=== PATIENT | female | born 1940 | race Caucasian/White ===

== ENCOUNTER → 2018-08-28 10:22 | Outpatient (CLI) | payer MEDICARE, BC, SELFPAY ==
--- NOTE | 2018-08-28 | DI.MG.S_ITS ---
BILATERAL DIGITAL SCREENING MAMMOGRAM 3D/2D WITH CAD: 08/28/2018 CLINICAL: Routine screening. Personal history of right breast cancer. Comparison is made to exams dated: 08/13/2017 mammogram, 07/25/2016 mammogram, and 09/29/2015 mammogram - [facility]. There are scattered fibroglandular elements in both breasts. Current study was also evaluated with a Computer Aided Detection (CAD) system. There is a stable benign architectural distortion in the right breast at 11 o'clock middle depth. There are surgical clips associated with the architectural distortion. No other significant masses, calcifications, or other findings are seen in either breast. IMPRESSION: There is no mammographic evidence of malignancy. A 1 year screening mammogram is recommended. This exam was interpreted at Station ID: [id number]. NOTE: For mammograms, a report in lay terms will be sent to the patient. Approximately 15% of breast malignancies will not be visualized mammographically. In the management of a palpable breast mass, a negative mammogram must not discourage biopsy of a clinically suspicious lesion. Electronically Signed By: Gabriela ferris/gloria:08/28/2018 12:04:55 copy to: DEO MIKE letter sent: Normal Exam ACR BI-RADS Category 2: Benign Finding(s) 3342F
== END ==
PROVIDERS: Family Provider Family Medicine; PCP Family Medicine; Visit Provider Family Medicine
DX: Z12.31 Encounter for screening mammogram for malignant neoplasm of breast (principal); Z85.3 Personal history of malignant neoplasm of breast
CPT/HCPCS: 77063; 77067

== ENCOUNTER 2018-12-30 11:23 | Inpatient (IN) | payer MEDICARE, BC, SELFPAY ==
[2018-12-19 12:47] VITALS: BMI 27.8
[2018-12-30] VITALS (11 sets, daily range): BP systolic 120–192; BP diastolic 71–99; PULSE 61–84; RESP 12–18; TEMP 36.2–36.7; O2SAT 91–98; BMI 26.9
--- NOTE | 2018-12-30 07:28 | DI.RAD.S_ITS ---
PROCEDURE: XR PELVIS 1-2V INDICATIONS: post op left total hip TECHNIQUE: 1 view of the lower pelvis acquired. COMPARISON: CR, PELVIS 1 OR 2VW, 12/12/2007, 12:04. [facility], CT, CT [facility], 12/14/2015, 10:10. FINDINGS: Bones: Patient is status post left hip arthroplasty, with hardware components in expected positions. The hip joint appears congruent. The visualized bony structures appear intact. Soft tissues: Overlying postoperative changes are noted. No suspicious soft tissue densities. IMPRESSION: Normal postoperative appearance after left total hip arthroplasty. Prior right total hip arthroplasty appears stable over time. Dictated by: Gutierrez Recio M.D. on 12/30/2018 at 17:16 Approved by: Gutierrez Recio M.D. on 12/30/2018 at 17:17
[2018-12-30] MEDS: ACETAMINOPHEN 325 MG TABLET 975 MG PO ×2 (11:50→20:20)
[2018-12-30] MEDS: CELECOXIB 200 MG CAPSULE PO (11:51)
[2018-12-30] MEDS: PREGABALIN 75 MG CAPSULE PO (11:51)
[2018-12-30] MEDS: LACTATED RINGERS 1,000 ML 42 ML IV ×2 (11:59→16:50)
--- NOTE | 2018-12-30 12:51 | PM.PREOP ---
Pre-operative Note Interval Note History & Physical reviewed/Exam performed by Physician: Yes Changes to H&P: No
--- NOTE | 2018-12-30 15:27 | SUR.OPER ---
Lateral on padded OR bed. Gel axillary roll. Arms secured on padded armboard with pillow supporting top arm. Padded hip positioner braces x4 - anterior and posterior chest and pelvis. Additional gel pad used anterior pelvis. Gel pad under bottom leg from knee to foot and secured with tape over sheet.
[2018-12-30] MEDS: CEFAZOLIN 1 GM VIAL IV (15:52)
[2018-12-30] MEDS: MORPHINE 4 MG/ML INJ INJ (16:06)
[2018-12-30] MEDS: ROPIVACAINE 0.5% PF 5 MG/ML 20ML VIAL 10 ML INJ (16:06)
[2018-12-30] MEDS: TRANEXAMIC ACID 1,000 MG VIAL 2000 MG INJ ×2 (16:09→16:50)
[2018-12-30] MEDS: KETOROLAC 30 MG/ML VIAL IV (16:09)
--- NOTE | 2018-12-30 17:04 | PM.OP.1 ---
Operative Date/Time/Diagnoses Date of procedure: 12/30/18 Time of procedure: 17:05 Pre-op diagnosis: Left hip DJD Post-op diagnosis: same Procedure & Clinicians Procedure: Left total hip arthroplasty (CPT code 02314 with cardiovascular physician assistant) Same procedure as scheduled: Yes Indications: Patient is an 78-year-old female with severe left hip DJD. The patient has pain with activities and at rest, limited ambulation and activity tolerance, difficulties with ADLs, and failure of conservative treatment. We have discussed the nature of condition, treatment options, risks and benefits, and patient elects to proceed with total hip arthroplasty and gives informed consent. Surgeon: Emigdio Medley Mold Sander: Izzy Nash Anesthesia Type: General and Spinal Operative Notes Closure Type: primary Specimen(s): none sent Prosthetic devices, grafts, tissues, transplants, or devices: Acetabulum: Angel and Nephew R3 acetabular component size 52 mm Femoral component: Angel and Nephew Anthology stem size 8 with standard offset Femoral head: 36 mm + 0 cobalt chrome Estimated Blood Loss (mL): 250 Blood products transfused: none Procedure in detail: After satisfaction induction of anesthetic, and administration of IV antibiotics, the patient was positioned in the lateral decubitus position with all bony prominences well padded and pelvic position secured using a hip engineering aid positioning device. Left hip and lower extremity prepped and draped in the usual sterile fashion, 1st dose of intravenous tranexamic acid was administered, then a longitudinal incision was created centered over the greater trochanter and carried sharply through the skin and subcutaneous tissues down to the fascia surjit which was divided longitudinally and retracted with a Charnley retractor. External rotators visualize, cut, tagged, and retracted posteriorly, then the capsule was cut in a T-type fashion with the corners tagged and retracted. Hip was dislocated and femoral neck cut made according to preoperative templating. Acetabular retractors then placed, and the acetabular labrum and osteophytes were excised. The acetabulum was then sequentially reamed to 51 mm with an excellent circumferential ream and fit with the trial. The trial component was removed and a permanent size 52 mm Angel and Nephew R3 acetabular component was selected, positioned, and impacted with satisfactory position and fixation achieved. Permanent liner was then inserted with the elevated lip directed posteriorly. Soft tissue then removed off the lateral femoral neck in the lateral neck was entered using a box osteotome. T-handled reamers placed down the canal followed by sequential broaching to 8 with the final broach left in place for trial reduction which demonstrated excellent leg length, range of motion, and stability characteristics with a 36 mm +0 trial ball. The trial and broach were removed, and a permanent size 8 Angel and Nephew Synergy stem was selected and inserted with excellent position and fixation achieved. Another trial reduction yielded the above characteristics so the trial ball was exchanged for a permanent 36 mm +0 cobalt chrome ball. The hip was irrigated and reduced and excellent leg length range of motion and stability characteristics were achieved and maintained. Periarticular tissues were infiltrated with ropivacaine, Toradol, and morphine. The hip was copiously irrigated, and the capsule repaired with #2 Ethibond, and the piriformis was repaired back to the greater trochanter with the same. Fascia surjit closed with interrupted #1 Ethibond sutures, and the subcutaneous tissues were closed in 2 layers of 0 Vicryl and 2 0 Vicryl. Skin was closed with sania and sterile dressings applied. Second dose of tranexamic acid was administered intravenously, and the anesthetic was terminated. Complications: none Condition: stable Disposition: PACU Plan for aftercare: Patient will be admitted to the acute care devlin, and anticipate discharge on postop day 1 or 2 with follow-up in office in 10-14 days. Outpatient physical therapy will be arranged and patient will continue to observe posterior hip precautions. Patient will continue use of postoperative Lovenox for 10 days postop.
--- NOTE | 2018-12-30 17:10 | P.OP_ITS ---
Operative Date/Time/Diagnoses Date of procedure: 12/30/18 Time of procedure: 17:05 Pre-op diagnosis: Left hip DJD Post-op diagnosis: same Procedure & Clinicians Procedure: Left total hip arthroplasty (CPT code 03752 with workforce development assistant) Same procedure as scheduled: Yes Indications: Patient is an 78-year-old female with severe left hip DJD. The p atient has pain with activities and at rest, limited ambulation and activity tolerance, difficulties with ADLs, and failure of conservative treatment. We have discussed the nature of condition, treatment options, risks and benefits, and patient elects to proceed with total hip arthroplasty and gives informed consent. Surgeon: Emigdio Medley Boxing Promoter: Izzy Nash Anesthesia Type: General and Spinal Operative Notes Closure Type: primary Specimen(s): none sent Prosthetic devices, grafts, tissues, transplants, or devices: Acetabulum: Angel and Nephew R3 acetabular component size 52 mm Femoral component: Angel and Nephew Anthology stem size 8 with standard offset Femoral head: 36 mm + 0 cobalt chrome Estimated Blood Loss (mL): 250 Blood products transfused: none Procedure in detail: After satisfaction induction of anesthetic, and administration of IV antibiotics, the patient was positioned in the lateral decubitus position with all bony prominences well padded and pelvic position secured using a hip bundle tier and labeler positioning device. Left hip and lower extremity prepped and draped in the usual sterile fashion, 1st dose of intravenous tranexamic acid was administered, then a longitudinal incision was created centered over the greater trochanter and carried sharply through the skin and subcutaneous tissues down to the fascia surjit which was divided longitudinally and retracted with a Charnley retractor. External rotators visualize, cut, tagged, and retracted posteriorly, then the capsule was cut in a T-type fashion with the corners tagged and retracted. Hip was dislocated and femoral neck cut made according to preoperative templating. Acetabular retractors then placed, and the acetabular labrum and osteophytes were excised. The acetabulum was then sequentially reamed to 51 mm with an excellent circumferential ream and fit with the trial. The trial component was removed and a permanent size 52 mm Angel and Nephew R3 acetabular component was selected, positioned, and impacted with satisfactory position and fixation achieved. Permanent liner was then inserted with the elevated lip directed posteriorly. Soft tissue then removed off the lateral femoral neck in the lateral neck was entered using a box osteotome. T- handled reamers placed down the canal followed by sequential broaching to 8 with the final broach left in place for trial reduction which demonstrated excellent leg length, range of motion, and stability characteristics with a 36 mm +0 trial ball. The trial and broach were removed, and a permanent size 8 Angel and Nephew Synergy stem was selected and inserted with excellent position and fixation achieved. Another trial reduction yielded the above characteristics so the trial ball was exchanged for a permanent 36 mm +0 cobalt chrome ball. The hip was irrigated and reduced and excellent leg length range of motion and stability characteristics were achieved and maintained. Periarticular tissues were infiltrated with ropivacaine, Toradol, and morphine. The hip was copiously irrigated, and the capsule repaired with #2 Ethibond, and the piriformis was repaired back to the greater trochanter with the same. Fascia surjit closed with interrupted #1 Ethibond sutures, and the subcutaneous tissues were closed in 2 layers of 0 Vicryl and 2 0 Vicryl. Skin was closed with sania and sterile dressings applied. Second dose of tranexamic acid was administered intravenously, and the anesthetic was terminated. Complications: none Condition: stable Disposition: PACU Plan for aftercare: Patient will be admitted to the acute care devlin, and anticip ate discharge on postop day 1 or 2 with follow-up in office in 10-14 days. Outpatient physical therapy will be arranged and patient will continue to observe posterior hip precautions. Patient will continue use of postoperative Lovenox for 10 days postop.
[2018-12-30] MEDS: ONDANSETRON 4 MG/2 ML INJ IV (17:21)
[2018-12-30] MEDS: LACTATED RINGERS 1,000 ML 125 ML IV (19:46)
--- NOTE | 2018-12-30 22:43 | PC.NURSE ---
Addendum entered by Dali Cates R.N. 12/30/18 22:48: CMS+ PP+, able to wiggle toes and ankle pump, denies pain. Original Note: 1755- pt arrived to room 205 from PACU via bed. A.O x4, 94%RA, LS clear, denies SOB. Left hip posterior bulky drsg CDI. Denies pain, unable to wiggle toes but able to lift right leg some. Head of bed up, emesis 1755-50mL out, 1800- 25mL out, 1830- 50mL out, and 2230- 50mL out. Using IS to 2200. RFA LR @ 125. Bed alarm on for safety.
[2018-12-30] MEDS: CEFAZOLIN 2 GM/100 ML FROZ.PIGGY IV (23:47)
[2018-12-31 00:02] VITALS: BP 134/81; PULSE 68; RESP 18; TEMP 36.6; O2SAT 93
--- NOTE | 2018-12-31 00:04 | PC.NURSE ---
Addendum entered by Milagro Aviles R.N. 12/31/18 01:40: Had another 200cc emesis around 0030 but none since. Assisted up to BSC with walker and 2 assists; patient moving very well and needed minimal assistance. No dizziness or lightheadedness. Was able to void 400cc. Urine is cloudy ashlee. Addendum entered by Milagro Aviles R.N. 12/31/18 00:16: Just had 200cc brown liquid emesis; medicated with Zofran although denies nausea after vomiting Original Note: Patient is alert and oriented. Breath sounds CTA with RA sat of 94%. HRR. Denies nausea at present but has had several small emesis since return from surgery. Was able to eat jello at shift change without emesis. BT hypoactive; denies flatus. Has not yet voided since return from surgery so will continue to monitor, bladder scan & in/out cath as needed. Able to turn self in bed but prefers to sleep on back. Dressing to left hip is CDI. Denies pain but agreeable to ice pack for comfort. CMS intact except PP weak and feet cool to touch. Wearing bilateral SCD's. Has not yet been out of bed. Fall risk score is moderate; bed alarm is activated.
[2018-12-31] MEDS: ONDANSETRON 4 MG/2 ML INJ IV (00:14)
[2018-12-31 04:00] VITALS: BP 129/78; PULSE 63; RESP 16; TEMP 36.7; O2SAT 95
[2018-12-31] MEDS: LACTATED RINGERS 1,000 ML 125 ML IV (04:06)
[2018-12-31 05:23] LABS: Hematocrit 39.1 % (36-46)
[2018-12-31] MEDS: CEFAZOLIN 2 GM/100 ML FROZ.PIGGY IV (07:39)
[2018-12-31 07:40] VITALS: BP 140/73; PULSE 67; RESP 16; TEMP 36.9; O2SAT 95
[2018-12-31] MEDS: ENOXAPARIN 40 MG/0.4 ML SYRINGE SUBCUT (08:15)
[2018-12-31] MEDS: ACETAMINOPHEN 325 MG TABLET 975 MG PO (08:15)
--- NOTE | 2018-12-31 08:53 | PM.DS.1 ---
History of Present Illness Date Patient Seen: 12/31/18 Time Patient Seen: 08:54 Chief complaint: [id number] LEFT JAYSON Narrative: Hospital day 2, postop day 1 following left posterior total hip arthroplasty by Dr. Medley. Patient remained stable postoperatively. Having minimal pain to the left hip. Using Tylenol only. Patient is a Fierro path patient and anticipates going home today. She does have postoperative pain medication at home. She is scheduled to go to [facility] PT in [place]. Patient did have some nausea vomiting last night but doing well this morning. Discharge Providers Date of admission: 12/30/18 11:23 Discharge Date: 12/31/18 Primary care physician: Inocetne Fang MD Consults: 12/30/18 18:02 Consult to Discharge Planning Routine Comment: Consult to Physical Therapy Evaluate & Treat Comment: Physician Instructions: post op JAYSON protocol Consult to Respiratory Therapy Evaluate & Treat Comment: Physician Instructions: Evaluate and treat Discharge provider: Ralph Ferrari PA-C Summary Discharge Diagnosis: Status post left posterior total hip arthroplasty Hospital Course: Patient brought to hospital on 12/30/2018 for above-noted surgery. She remained stable postoperatively. Progressed with physical therapy. Ready for discharge home on postop day 1. Exam Vital Signs (past 8 hours): - 12/31/18 04:00 Temperature 98.0 F Pulse Rate 63 Respiratory Rate 16 Blood Pressure 129/78 Pulse Oximetry 95 Oxygen Delivery Method Room Air Oxygen Flow Rate 0 Narrative Exam Narrative: Alert, oriented in no acute distress resting in bed. Legs. A bulky dressing to left hip is dry without drainage or inflammation. No calf pain or swelling. Pulses symmetrical. Objective Labs Result Diagrams: 12/31/18 05:05 Labs: Laboratory Results - last 24 hr 12/31/18 05:05 Hgb 13.0 Hct 39.1 Discharge Plan Discharge Plan Patient Disposition: Home Discharge comment: Discharge home after cleared by PT. Apply CovRsite dressing to the left hip incision. Patient is a Fierro path patient and has postoperative prescriptions for oxycodone and Vistaril at home. Discharge Med Rec/Prescriptions Prescriptions: New enoxaparin [Lovenox] 40 mg/0.4 mL Syringe 40 mg subcut DAILY Qty: 9 RF: 0 Continued pravastatin 40 mg Tablet 40 mg PO QPM RF: 0 naproxen sodium [Aleve] 220 mg Capsule 220 mg PO BID PRN (Reason: Pain) RF: 0 calcium carbonate [Calcium 600] 600 mg calcium (1,500 mg) Tablet 600 mg PO DAILY RF: 0 Multi For Her 50 Plus 400-80 mcg Capsule 400 mcg PO DAILY RF: 0 vit D3-folic [id number]-B12 2,000-800-0.32 unit-mcg-mg Tablet 1 tab PO DAILY RF: 0 Follow up/Referrals: Inocente Fang MD [Primary Care Provider] - Provider Discharge Instructions Diet: Diet as Tolerated Activity: Ambulate as tolerated. Use walker as needed. Left posterior total hip arthroplasty protocol x6 weeks postop. Cold/Heat Therapy: Cold pack to left hip as needed. Skin/Wound/Dressing Care Report to your healthcare provider any signs of infection, such as:: chills, fever, night sweats, increased pain, unusual drainage and unusual redness Dressing: Keep CovRsite dressing in place until postop visit. She may shower but do not have the shower go directly on the dressing. Visit Report/Discharge Packet Instructions: DI for Hip Replacement Discharge Data Primary Care Provider: Inocente Fang Attending Provider: Emigdio Medley Admit Date/Time: 12/30/18 11:23 Quality VTE Deep Vein Thrombosis/Pulmonary Embolism Present on Admission: No
--- NOTE | 2018-12-31 08:57 | P.DS_ITS ---
History of Present Illness Date Patient Seen: 12/31/18 Time Patient Seen: 08:54 Chief complaint: [id number] LEFT JAYSON Narrative: Hospital day 2, postop day 1 following left posterior total hip arth roplasty by Dr. Medley. Patient remained stable postoperatively. Having minimal pain to the left hip. Using Tylenol only. Patient is a Fierro path patient and anticipates going home today. She does have postoperative pain medication at home. She is scheduled to go to [facility] PT in [place]. Patient did have some nausea vomiting last night but doing well this morning. Discharge Providers Date of admission: 12/30/18 11:23 Discharge Date: 12/31/18 Primary care physician: Inocente Fang MD Consults: 12/30/18 18:02 Consult to Discharge Planning Routine Comment: Consult to Physical Therapy Evaluate & Treat Comment: Physician Instructions: post op JAYSON protocol Consult to Respiratory Therapy Evaluate & Treat Comment: Physician Instructions: Evaluate and treat Discharge provider: Ralph Ferrari PA-C Summary Discharge Diagnosis: Status post left posterior total hip arthroplasty Hospital Course: Patient brought to hospital on 12/30/2018 for above-noted surgery. She remained stable postoperatively. Progressed with physical therapy. Ready for discharge home on postop day 1. Exam Vital Signs (past 8 hours): - 12/31/18 04:00 Temperature 98.0 F Pulse Rate 63 Respiratory Rate 16 Blood Pressure 129/78 Pulse Oximetry 95 Oxygen Delivery Method Room Air Oxygen Flow Rate 0 Narrative Exam Narrative: Alert, oriented in no acute distress resting in bed. Legs. A bulky dressing to left hip is dry without drainage or inflammation. No calf pain or swelling. Pulses symmetrical. Objective Labs Result Diagrams: 12/31/18 05:05 Labs: Laboratory Results - last 24 hr 12/31/18 05:05 Hgb 13.0 Hct 39.1 Discharge Plan Discharge Plan Patient Disposition: Home Discharge comment: Discharge home after cleared by PT. Apply CovRsite dressing to the left hip incision. Patient is a Fierro path patient and has postoperative prescriptions for oxycodone and Vistaril at home. Discharge Med Rec/Prescriptions Prescriptions: New enoxaparin [Lovenox] 40 mg/0.4 mL Syringe 40 mg subcut DAILY Qty: 9 RF: 0 Continued pravastatin 40 mg Tablet 40 mg PO QPM RF: 0 naproxen sodium [Aleve] 220 mg Capsule 220 mg PO BID PRN (Reason: Pain) RF: 0 calcium carbonate [Calcium 600] 600 mg calcium (1,500 mg) Tablet 600 mg PO DAILY RF: 0 Multi For Her 50 Plus 400-80 mcg Capsule 400 mcg PO DAILY RF: 0 vit D3-folic [id number]-[id number]-B12 2,000-800-0.32 unit-mcg-mg Tablet 1 tab PO DAILY RF: 0 Follow up/Referrals: Inocente Fang MD [Primary Care Provider] - Provider Discharge Instructions Diet: Diet as Tolerated Activity: Ambulate as tolerated. Use walker as needed. Left posterior total hip arthroplasty protocol x6 weeks postop. Cold/Heat Therapy: Cold pack to left hip as needed. Skin/Wound/Dressing Care Report to your healthcare provider any signs of infection, such as:: chills, fever, night sweats, increased pain, unusual drainage and unusual redness Dressing: Keep CovRsite dressing in place until postop visit. She may shower but do not have the shower go directly on the dressing. Visit Report/Discharge Packet Instructions: DI for Hip Replacement Discharge Data Primary Care Provider: Inocente Fang Attending Provider: Emigdio Medley Admit Date/Time: 12/30/18 11:23 Quality VTE Deep Vein Thrombosis/Pulmonary Embolism Present on Admission: No
--- NOTE | 2018-12-31 09:12 | CM.DPC ---
Discharge Planning/Care Management CM Discharge Assessment Start: 12/31/18 09:11 Freq: Status: Active Protocol: Document 12/31/18 09:11 ITV (Rec: 12/31/18 09:12 ITV [id number]) Discharge Planning Assessment Advance Directives? Yes Advance Directives on File No History Provided By Patient Medical Record Prior Living Arrangements House Household Members spouse Is patient alert and oriented? Yes Review Status In Process Pre-Anesthesia Assessment Start: 12/19/18 12:47 Freq: Status: Complete Protocol: Document 12/19/18 12:47 CAB (Rec: 12/19/18 13:17 CAB [id number]) Pre-Anesthesia Assessment Patient Information Reviewed Via Phone Assessment Assessment Completed With Patient Diagnostic Results BMP/CMP CBC EKG Comment Outside labs/EKG scanned to record Primary Care Provider Inocente Fang Seen Specialist in Last 12 Months Yes Specialist Seen Orthopedist Primary Language Persian Height 166.37 cm Weight 77.111 kg Body Mass Index (BMI) 27.8 Hearing Ability Normal Visual Assist Glasses Dentition Type Teeth, Natural Present Teeth, Missing Barriers to Learning None Other Aids No Hx Anesthesia Reactions Yes: PONV Hx Family Anesthesia Reaction No Hx Malignant Hyperthermia No Hx Blood Transfusions No Anesthesia Review Requested Yes: PAC courtesy re: abnormal pre-op EKG Consultative Sales Associate No alcohol intake never Smoking Status Never smoker Substance Use Type does not use Pain Present Pain Reported Musculoskeletal Symptoms Abnormal Gait Difficulty Walking Joint Pain History of Falling (Recent or History of No ) Patient is completely paralyzed or No completely immobile Mental Status Oriented to own ability Is patient on oxygen? No Does patient have ANDERSON/SOB No Hx Sleep Apnea No Currently Taking a Beta Carlos No Can You Climb a Flight of Stairs Without Yes SOB Hx Chest Pain No Hx SOB No Hx Syncope or Dizziness No Anti-Coagulant Therapy No Has a Storekeeper Helper No Cardiac Testing No Hx Pacemaker/ICD No Pacemaker Rep Required? No Cardiac Clearance Received Not Applicable Diet Type At Home Regular dysphagia No Urinary Catheter Present No Hx Urinary Self Catheterization No Diabetes No Patient No Lactating No Hx Drug Resistant Organism No Presence of External or Internal Medical Yes: Right hip prosthesis Devices Have you traveled outside the [facility] in the last 30 days? Marital Status Lives With spouse Prior Living Arrangements House Number of Floors (Floors) One Floor Support System Child/Children Friend(s) Spouse Patient Discharge Plan Description Return Home Comment Pt advised overnight length of stay per surgeon's office Feels Safe in Current Environment Yes Been Physically Hurt or Threatened By a No Person in Current Environment Do you have thoughts of harming yourself None or others? Are you currently considering suicide? No Do you have a plan to hurt yourself or No Plan others? Do You Have Any Spiritual Beliefs That No May Affect Your HC Choices? Do You Have Any Cultural Practices That No May Affect Your HC Choices? Spiritual Referral None Comment Mandaeism Who Can We Speak to About Patient's Care Family, friends Identifying Code for Release of Patient Declines to issue Information Health Care Proxy/Next of Kin Jose J Gtz () Health Care Proxy Emergency Contact Name Jose J Gtz () Emergency Contact Advance Directives? Yes Advance Directives on File No Requested Patient Bring Advanced Yes Directives DOS Power of Tobacco Roller Yes Power of Tobacco Roller Name Jose J Gtz () Power of Tobacco Roller PAC Instructions Do not shave/clip surgical site Durable medical equipment Medications to take/avoid Nasal antibiotic No ETOH/petroleum product on skin DOS NPO Post-op transportation Pre-surgical wash Sturdy shoes/comfortable clothes Do not bring valuables and remove jewelry
--- NOTE | 2018-12-31 09:14 | CM.DANOTE ---
Addendum entered by Lynne Priest LPN 12/31/18 11:30: Went to room to check in with pt as planned. PT note is note yet in but, per staff, PT did work with pt this morning and she has already left for home with her as per her preop plan. Addendum entered by Lynne Priest LPN 12/31/18 09:27: Of note: pt has hx of RTHA. Original Note: Discharge Planning/Care Management DCP: assessment: Case received, EMR reviewed and a d/c to home order noted :when cleared by PT. PT is a 78 year old female who admitted yesterday for a planned LTHA/posterior. Surgeon: Dr. Medley Payer: Medicare and [facility][note 2] PCP: Inocente Fang Pt has not been seen yet by PT. Her pre-op plan is identified as home with her spouse [place]'s supportive assist and OUTPT PT at [facility] PT in [facility]. P: discuss case in Team Rounds this morning and check in with pt for d/c issues and options. CM Discharge Assessment Start: 12/31/18 09:11 Freq: Status: Active Protocol: Document 12/31/18 09:11 ITV (Rec: 12/31/18 09:12 ITV [id number]) Discharge Planning Assessment Advance Directives? Yes Advance Directives on File No History Provided By Patient Medical Record Prior Living Arrangements House Household Members spouse Is patient alert and oriented? Yes Review Status In Process Pre-Anesthesia Assessment Start: 12/19/18 12:47 Freq: Status: Complete Protocol: Document 12/19/18 12:47 CAB (Rec: 12/19/18 13:17 CAB [id number]) Pre-Anesthesia Assessment Patient Information Reviewed Via Phone Assessment Assessment Completed With Patient Diagnostic Results BMP/CMP CBC EKG Comment Outside labs/EKG scanned to record Primary Care Provider Inocente Fang Seen Specialist in Last 12 Months Yes Specialist Seen Orthopedist Primary Language Kinyarwanda Height 166.37 cm Weight 77.111 kg Body Mass Index (BMI) 27.8 Hearing Ability Normal Visual Assist Glasses Dentition Type Teeth, Natural Present Teeth, Missing Barriers to Learning None Other Aids No Hx Anesthesia Reactions Yes: PONV Hx Family Anesthesia Reaction No Hx Malignant Hyperthermia No Hx Blood Transfusions No Anesthesia Review Requested Yes: PAC courtesy re: abnormal pre-op EKG 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 No Does patient have ANDERSON/SOB No Hx Sleep Apnea No Currently Taking a Beta Carlos No Can You Climb a Flight of Stairs Without Yes SOB Hx Chest Pain No Hx SOB No Hx Syncope or Dizziness No Anti-Coagulant Therapy No Has a System Validation Engineer No Cardiac Testing No Hx Pacemaker/ICD No Pacemaker Rep Required? No Cardiac Clearance Received Not Applicable Diet Type At Home Regular dysphagia No Urinary Catheter Present No Hx Urinary Self Catheterization No Diabetes No Patient No Lactating No Hx Drug Resistant Organism No Presence of External or Internal Medical Yes: Right hip prosthesis Devices Have you traveled outside the [facility] in the last 30 days? Marital Status Lives With spouse Prior Living Arrangements House Number of Floors (Floors) One Floor Support System Child/Children Friend(s) Spouse Patient Discharge Plan Description Return Home Comment Pt advised overnight length of stay per surgeon's office Feels Safe in Current Environment Yes Been Physically Hurt or Threatened By a No Person in Current Environment Do you have thoughts of harming yourself None or others? Are you currently considering suicide? No Do you have a plan to hurt yourself or No Plan others? Do You Have Any Spiritual Beliefs That No May Affect Your HC Choices? Do You Have Any Cultural Practices That No May Affect Your HC Choices? Spiritual Referral None Comment Buddhist Who Can We Speak to About Patient's Care Family, friends Identifying Code for Release of Patient Declines to issue Information Health Care Proxy/Next of Kin Jose J Gtz () Health Care Proxy Emergency Contact Name Jose J Gtz () Emergency Contact Advance Directives? Yes Advance Directives on File No Requested Patient Bring Advanced Yes Directives DOS Power of Pattern Hanger Yes Power of Pattern Hanger Name Jose J Gtz () Power of Pattern Hanger PAC Instructions Do not shave/clip surgical site Durable medical equipment Medications to take/avoid Nasal antibiotic No ETOH/petroleum product on skin DOS NPO Post-op transportation Pre-surgical wash Sturdy shoes/comfortable clothes Do not bring valuables and remove jewelry
--- NOTE | 2018-12-31 09:15 | PT.IIE ---
Current Diagnoses Unilateral primary osteoarthritis, left hip (12/30/18) Surgery Performed Operation Date: 12/30/18 13:45 Actual Procedures p Total Hip Arthroplasty-Posterior(Left) - Emigdio Medley MD Surgical History (Last Updated 12/19/18 @ 13:10 by Esther Obrien, RN) History of lumpectomy of right breast (Acute ~2015) History of total right hip arthroplasty (Acute ~2007) Hx of dilation and curettage (Acute) Hx of tonsillectomy (Acute) Status post bilateral cataract extraction (Acute) Medical History (Last Updated 12/19/18 @ 13:10 by Esther Obrien RN) Breast cancer, right (Acute ~2015) H/O: hysterectomy (Acute) HLD (hyperlipidemia) (Acute) Osteoarthritis (Acute) Physical Therapy Inpatient Evaluation/Re-Eval M1 PT/OT-IP Prior Functional Status Start: 12/31/18 12:02 Freq: NEEDED Status: Active Protocol: Document 12/31/18 09:15 AB (Rec: 12/31/18 12:20 AB [id number]) Medical Review Prior Functional Status Medical History Reviewed Yes Communication able to make needs known Mobility and Gait Pt stated that she is independent with all mobilities and ambulation without AD Social History Household Members spouse Living Arrangements House Number of Floors (Floors) One Floor Number of Stairs To Enter/Railing? 2 steps to enter with L rail ascending Home Environment Standard Height Toilet Walk in Shower Built-In Shower Seat Home Equipment Front Wheel Walker Straight Cane Raised Toilet Seat w/Armrests Long Handled Shoe [employer] Merchant Grab Bars In Shower Employment Status Retired M2 PT-IP Current Condition Start: 12/31/18 12:02 Freq: NEEDED Status: Active Protocol: Document 12/31/18 09:15 AB (Rec: 12/31/18 12:20 AB [id number]) Physical Therapy Current Condition Current Condition Evaluation Date 12/31/18 Treatment Diagnosis s/p L JAYSON posterior approach; difficulty in walking Onset Date 12/30/18 Precautions Posterior Hip Precautions No Hip Flexion > 90 degrees No Hip Internal Rotation No Hip Adduction Weight Bearing Status Weight Bearing Status Weight Bear as Tolerated M3 PT-IP Subjective Start: 12/31/18 12:02 Freq: NEEDED Status: Active Protocol: Document 12/31/18 09:15 AB (Rec: 12/31/18 12:20 AB [id number]) Subjective Physical Therapy Visit Type Type Initial Evaluation Visit Start Time 09:15 Visit Stop Time 10:07 Total Visit Minutes 52 Number of HAT TRIMMER Visits 0 Physical Therapy Visit Comments Patient Comments pt agreeable to to PT Therapy Pain Assessment Pain When Pain Assessed At Rest Pain Present Pain Present Denied Pain M4 PT-IP Mobility and Gait Start: 12/31/18 12:02 Freq: NEEDED Status: Active Protocol: Document 12/31/18 09:15 AB (Rec: 12/31/18 12:20 AB [id number]) PT-Bed Mobility Assessment Supine to Sit Supine to Sit Standby Assistance Sit to Supine Sit to Supine Standby Assistance Scooting Scooting to Edge of Bed Standby Assistance PT-Transfer Assessment Sit to and From Stand Sit to and from Stand Standby Assistance Contact Guard Assistance Use of Upper Extremities Equipment Transfer Assistive Device Gait Belt Front Wheeled Walker Orthotic/Prosthetic Devices or Brace: No Transfers Transfer Destination Chair Transfer Technique pt ambulated using FWW Transfer Ability Level of Assist Standby Assistance Comments Mobility Comments completed sit <>stand x 8 reps requiring SBA to CGA and max cues for techniques and safety . Gait Assessment Gait Gait Assistance Required: Standby Assistance Distance (Feet) 50 Able to Maintain Weight Bearing Status Yes During Gait Assistive Devices Assistive Device Gait Belt Front Wheeled Walker Orthotic/Prosthetic Devices or Brace: No Gait Deviations General Gait Pattern Antalgic Decreased Stride Length Decreased Feet Clearance Factors Limiting Gait Function Factors Limiting Gait Function Decreased Activity Tolerance Decreased Strength Limited Range of Motion Poor Balance Stair Climbing Assessment Evaluation Level of Assist On Stairs Contact Guard Assistance Devices Stair Climbing Assistive Devices Left Railing Technique/Endurance Stair Climbing Direction Ascend and Descend Stair Climbing Technique Step to Step Number of Steps Climbed 3 Query Text: Stair Climbing Set # Repetitions (reps) 2 Comments Stair Climbing Comments completed up/down steps using L rail ascending CGA; repeated again but holding on to L rail with B rails CGA and pt is more stable hold ing on with B hands. PT-Balance Assessment Sitting Balance and Reactions Static Sitting Balance Ability Good Dynamic Sitting Balance Ability Good Standing Balance and Reactions Static Standing Balance Ability Fair Dynamic Standing Balance Ability Fair Device Used FWW M5 PT-IP Objective Assessments Start: 12/31/18 12:02 Freq: NEEDED Status: Active Protocol: Document 12/31/18 09:15 AB (Rec: 12/31/18 12:20 AB [id number]) Orientation Orientation/Cognition Level of Alertness Alert Orientation Name Place Situation Safety Awareness Decreased Safety Awareness Strength Lower Extremity Strength Assessment Left Impaired Hip 4-/5 Knee 4-/5 Coordination Assessment Gross Coordination Gross Coordination WNL Sensation Assessment Sensation Gross Sensation WNL Muscle Tone Muscle Tone WNL Yes M6 PT-IP Treatment Start: 12/31/18 12:02 Freq: NEEDED Status: Active Protocol: Document 12/31/18 09:15 AB (Rec: 12/31/18 12:20 AB [id number]) Physical Therapy Treatment Exercises Exercises Heel Slides Education Education Provided Precautions Weight Bearing Status Post-Op Packet Safety M7 PT-IP Assessment and Plan Start: 12/31/18 12:02 Freq: NEEDED Status: Active Protocol: Document 12/31/18 09:15 AB (Rec: 12/31/18 12:20 AB [id number]) PT Summary Assessment and Plan Potential Rehabilitation Potential Good Status of Condition at Evaluation Stable Summary Impairments Pain ROM Strength Balance Coordination Bed Mobility Transfers Gait Activity Tolerance Assessment Summary pt requiring SBA to CGA wtih mobility and plans to go home with her spouse to assist her. pt is already set up for outpt PT. pt may go home when medically stable. Goals Bed Mobility Goal Independent Transfer Goal Independent Front Wheeled Walker Gait Goal Independent Front Wheel Walker Gait Distance 200 Other Goals up/down 2 steps using L rail ascending Days to Meet Goals 3 Frequency of Treatment Frequency Of Treatment Twice a Day Treatment Plan Physical Therapy Treatment Plan Bed Mobility Training Transfer Training Gait Training Therapeutic Exercise Balance Retraining Post Op Education Discharge Planning Hot or Cold Pack Neuromuscular Re-ed Coordination Retraining Manual Therapy Other Recommendations and Next Treatment ambulation, sit <>stand, stair Focus climbing Recommendations To Nursing Amount of Assist Needed 1 Person Assist Discharge Recommendations PT Discharge Recommendations Home with Assistance Outpatient PT
--- NOTE | 2018-12-31 10:35 | PC.NURSE ---
Pt has been cleared by P.T. and family is present to take her home. Removed IV and changed left hip dsg to Coversite. Went over d/c instructions with Pt and Spouse discussed d/c meds, time of last dose, reviewed Lovenox injection procedure, signs and symptoms of infection and when to all MD and stroke education as well as following hip precautions and encouraged fluid intake to prevent constipation or dehydration and no driving while on narcotics. Pt denied further questions and is getting dressed and will call when she is ready to be taken out via w/c by STITCH[employer] AROUND to POV with Spouse and all belongings.
== END 2018-12-31 10:50 | disposition home or self-care (01) | DRG 470 ==
PROVIDERS: Admitting Provider Orthopaedic Surgery; Family Provider Family Medicine; PCP Family Medicine; Visit Provider Orthopaedic Surgery
PROC: 0SRB0JZ Replacement of Left Hip Joint with Synthetic Substitute, Open Approach (ICD-10-PCS; CPT 27130; principal; 2018-12-30 13:45)
DX: M16.12 Unilateral primary osteoarthritis, left hip (principal); Z96.641 Presence of right artificial hip joint; E78.5 Hyperlipidemia, unspecified
CPT/HCPCS: 36415; 72170; 85014; 85018; 97116; 97161; 97530; C1776; J0690; J1650; J1885; J2250; J2270; J2405; J2704; J3010

== ENCOUNTER → 2019-08-29 07:52 | Outpatient (CLI) | payer MEDICARE, BC, SELFPAY ==
[2018-12-30 11:43] VITALS: BMI 26.9
--- NOTE | 2019-08-29 | DI.MG.S_ITS ---
BILATERAL DIGITAL SCREENING MAMMOGRAM 3D/2D WITH CAD POST LUMPECTOMY: 08/29/2019 CLINICAL: Routine screening. Personal history of right breast cancer. Comparison is made to exams dated: 08/28/2018 mammogram, 08/13/2017 mammogram, and 07/25/2016 mammogram - [facility]. There are scattered fibroglandular elements in both breasts. Current study was also evaluated with a Computer Aided Detection (CAD) system. There are benign calcifications in both breasts. There also are benign post operative findings in the right breast. No significant masses, calcifications, or other findings are seen in either breast. There has been no significant interval change. IMPRESSION: There is no mammographic evidence of malignancy. A 1 year screening mammogram is recommended. This exam was interpreted at Station ID: [id number]. NOTE: For mammograms, a report in lay terms will be sent to the patient. Approximately 15% of breast malignancies will not be visualized mammographically. In the management of a palpable breast mass, a negative mammogram must not discourage biopsy of a clinically suspicious lesion. Electronically Signed By: Harrison peterson/gloria:08/29/2019 08:43:32 copy to: DEO MIKE letter sent: Normal Exam ACR BI-RADS Category 2: Benign Finding(s) 3342F
== END ==
PROVIDERS: Family Provider Family Medicine; PCP Family Medicine; Referring Provider Family Medicine; Visit Provider Family Medicine
DX: Z12.31 Encounter for screening mammogram for malignant neoplasm of breast (principal); Z85.3 Personal history of malignant neoplasm of breast
CPT/HCPCS: 77063; 77067

== ENCOUNTER → 2020-08-30 11:20 | Outpatient (CLI) | payer MEDICARE, BC, SELFPAY ==
[2018-12-30 11:43] VITALS: BMI 26.9
--- NOTE | 2020-08-30 | DI.MG.S_ITS ---
BILATERAL DIGITAL SCREENING MAMMOGRAM 3D/2D WITH CAD POST LUMPECTOMY: 08/30/2020 CLINICAL: Routine screening. Breast cancer. Comparison is made to exams dated: 08/29/2019 mammogram, 08/28/2018 mammogram, and 08/13/2017 mammogram - [facility]. There are scattered fibroglandular elements in both breasts. Current study was also evaluated with a Computer Aided Detection (CAD) system. There are benign calcifications in both breasts. There also are benign post operative findings in the right breast. No significant masses, calcifications, or other findings are seen in either breast. There has been no significant interval change. IMPRESSION: BENIGN There is no mammographic evidence of malignancy. A 1 year screening mammogram is recommended. This exam was interpreted at Station ID: [id number]. NOTE: For mammograms, a report in lay terms will be sent to the patient. Approximately 15% of breast malignancies will not be visualized mammographically. In the management of a palpable breast mass, a negative mammogram must not discourage biopsy of a clinically suspicious lesion. Electronically Signed By: Kenneth Matthews M.D., jr/gloria:08/30/2020 12:02:10 copy to: DEO MIKE letter sent: Normal Exam ACR BI-RADS Category 2: Benign Finding(s) 3342F
== END ==
PROVIDERS: Family Provider Family Medicine; PCP Family Medicine; Referring Provider Family Medicine; Visit Provider Family Medicine
DX: Z12.31 Encounter for screening mammogram for malignant neoplasm of breast (principal); Z80.3 Family history of malignant neoplasm of breast
CPT/HCPCS: 77063; 77067

== ENCOUNTER → 2021-09-01 11:04 | Outpatient (CLI) | payer MEDICARE, BC, SELFPAY ==
[2018-12-30 11:43] VITALS: BMI 26.9
--- NOTE | 2021-09-01 | DI.MG.S_ITS ---
BILATERAL DIGITAL SCREENING MAMMOGRAM 3D/2D WITH CAD: 09/01/2021 CLINICAL: Routine screening. Personal history of right breast cancer. Comparison is made to exams dated: 08/30/2020 mammogram, 08/29/2019 mammogram, and 08/28/2018 mammogram - [facility]. There are scattered fibroglandular elements in both breasts. Current study was also evaluated with a Computer Aided Detection (CAD) system. There are benign calcifications in both breasts. There also are benign post operative findings in the right breast. No significant masses, calcifications, or other findings are seen in either breast. There has been no significant interval change. IMPRESSION: BENIGN There is no mammographic evidence of malignancy. A 1 year screening mammogram is recommended. This exam was interpreted at Station ID: [id number]. NOTE: For mammograms, a report in lay terms will be sent to the patient. Approximately 15% of breast malignancies will not be visualized mammographically. In the management of a palpable breast mass, a negative mammogram must not discourage biopsy of a clinically suspicious lesion. Electronically Signed By: Raul wheeler/gloria:09/01/2021 12:05:10 copy to: DEO MIKE letter sent: Normal Exam ACR BI-RADS Category 2: Benign Finding(s) 3342F
== END ==
PROVIDERS: Family Provider Family Medicine; PCP Family Medicine; Referring Provider Family Medicine; Visit Provider Family Medicine
DX: Z12.31 Encounter for screening mammogram for malignant neoplasm of breast (principal); Z85.3 Personal history of malignant neoplasm of breast
CPT/HCPCS: 77063; 77067

== ENCOUNTER → 2022-09-04 11:04 | Outpatient (CLI) | payer MEDICARE, BC, SELFPAY ==
[2018-12-30 11:43] VITALS: BMI 26.9
--- NOTE | 2022-09-04 | DI.MG.S_ITS ---
BILATERAL DIGITAL SCREENING MAMMOGRAM 3D/2D WITH CAD: 09/04/2022 CLINICAL: Routine screening. Breast cancer. Comparison is made to exams dated: 09/01/2021 mammogram, 08/30/2020 mammogram, and 08/29/2019 mammogram - [facility]. There are scattered areas of fibroglandular density in both breasts (category b / 25%-50% glandular tissue). Current study was also evaluated with a Computer Aided Detection (CAD) system. There are benign calcifications in both breasts. There also are benign post operative findings in the right breast. No significant masses, calcifications, or other findings are seen in either breast. There has been no significant interval change. IMPRESSION: BENIGN There is no mammographic evidence of malignancy. A 1 year screening mammogram is recommended. This exam was interpreted at Station ID: [id number]. NOTE: For mammograms, a report in lay terms will be sent to the patient. Approximately 15% of breast malignancies will not be visualized mammographically. In the management of a palpable breast mass, a negative mammogram must not discourage biopsy of a clinically suspicious lesion. Electronically Signed By: Raul wheeler/gloria:09/04/2022 12:21:39 copy to: DEO MIKE letter sent: Normal Exam ACR BI-RADS Category 2: Benign Finding(s) 3342F
== END ==
PROVIDERS: Family Provider Family Medicine; PCP Family Medicine; Referring Provider Family Medicine; Visit Provider Family Medicine
DX: Z12.31 Encounter for screening mammogram for malignant neoplasm of breast (principal); Z85.3 Personal history of malignant neoplasm of breast
CPT/HCPCS: 77063; 77067

== ENCOUNTER → 2023-09-06 08:07 | Outpatient (CLI) | payer MEDICARE, BC, SELFPAY ==
[2018-12-30 11:43] VITALS: BMI 26.9
--- NOTE | 2023-09-06 08:09 | DI.MG.S_ITS ---
BILATERAL DIGITAL SCREENING MAMMOGRAM 3D/2D WITH CAD POST LUMPECTOMY: 09/06/2023 CLINICAL: Routine screening. Personal history of right breast cancer. Comparison is made to exams dated: 09/01/2021 mammogram, 09/04/2022 mammogram, 08/30/2020 mammogram, and 08/29/2019 mammogram - [facility]. There are scattered areas of fibroglandular density in both breasts (category b / 25%-50% glandular tissue). Current study was also evaluated with a Computer Aided Detection (CAD) system. There are benign calcifications in both breasts. There also are benign vascular calcifications in both breasts. Additionally, there are benign post operative findings in the right breast. No significant masses, calcifications, or other findings are seen in either breast. There has been no significant interval change. IMPRESSION: BENIGN There is no mammographic evidence of malignancy. A 1 year screening mammogram is recommended. This exam was interpreted at Station ID: [id number]. NOTE: For mammograms, a report in lay terms will be sent to the patient. Approximately 15% of breast malignancies will not be visualized mammographically. In the management of a palpable breast mass, a negative mammogram must not discourage biopsy of a clinically suspicious lesion. Electronically Signed By: Jose Alberto márquez/gloria:09/06/2023 10:33:48 copy to: DEO MIKE letter sent: Normal Exam ACR BI-RADS Category 2: Benign Finding(s) 3342F
== END ==
LOC: MAMMO 08:08
PROVIDERS: Family Provider Family Medicine; PCP Family Medicine; Referring Provider Family Medicine; Visit Provider Family Medicine
DX: Z12.31 Encounter for screening mammogram for malignant neoplasm of breast (principal); Z85.3 Personal history of malignant neoplasm of breast; R92.323 Mammographic fibroglandular density, bilateral breasts
CPT/HCPCS: 77063; 77067

== ENCOUNTER → 2024-09-15 13:55 | Outpatient (CLI) | payer MEDICARE, OTHER, SELFPAY ==
[2018-12-30 11:43] VITALS: BMI 26.9
--- NOTE | 2024-09-15 13:58 | DI.MG.S_ITS ---
MM screening mammo BI: 09/15/2024. BI-RADS: 2 CLINICAL: 84-year old female for bilateral screening mammogram. No Tyrer-Cuzick risk score calculation due to the patient's personal history of breast cancer. Patient reports a history of right breast carcinoma diagnosed at age 75. Status-post right lumpectomy with radiation therapy. No first-degree family history of breast cancer. The patient had a prior right breast biopsy. PRIOR EXAMS 09/06/2023, 09/04/2022, 09/01/2021, 08/30/2020, 08/29/2019, 08/28/2018, 08/13/2017, 07/25/2016, 11/16/2015, 10/04/2015, 09/29/2015, 09/21/2015. MAMMOGRAPHY TECHNIQUE: 2D and 3D (tomosynthesis) digital mammographic views obtained, with additional images as needed for full coverage. Current study was also evaluated with a Computer Aided Detection (CAD) system. DENSITY B. There are scattered areas of fibroglandular density. MAMMOGRAPHY FINDINGS Right: Benign-appearing post-surgical changes noted on the right. There are no suspicious masses, calcifications, or other findings in the breast. Left: No suspicious mass, asymmetry, microcalcification, or other abnormality seen. IMPRESSION: Right * No evidence of malignancy with benign findings. Left * No evidence of malignancy. RECOMMENDATIONS Bilateral * Annual screening mammography. OVERALL ASSESSMENT CATEGORY BI-RADS-2: Benign. The [employer] recommends annual screening mammography beginning at age 40 for women with average risk of breast cancer. ELECTRONICALLY SIGNED: Jose Alberto Liriano M.D. on 09/15/2024 at 06:39:34 PM PT Interpreting Station ID: [id number]
== END ==
LOC: MAMMO 13:58
PROVIDERS: Family Provider Family Medicine; PCP Family Medicine; Referring Provider Family Medicine; Visit Provider Family Medicine
DX: Z12.31 Encounter for screening mammogram for malignant neoplasm of breast (principal); Z85.3 Personal history of malignant neoplasm of breast
CPT/HCPCS: 77063; 77067